=== PATIENT | male | born 1975 ===

== ENCOUNTER 2017-09-22 09:09 | Emergency (ER) | payer OTHER ==
[2017-09-22 09:19] VITALS: RESP 18
[2017-09-22] MEDS ORDERED: Sodium Chloride 0.9% 1,000 ML IV ONE (10:05)
[2017-09-22] MEDS ORDERED: Sodium Chloride 0.9% 1,000 ML ONE (10:11)
[2017-09-22 10:28] LABS: BASO # 0.1 K/uL (0.0-0.2); BASO % 0.8 % (0.0-2.0); EOS # 0.2 K/uL (0.0-0.7); EOS % 1.7 % (0.0-4.0); HEMOGLOBIN 14.7 g/dL (12.0-18.0); LYMPH # 2.4 K/uL (1.0-4.3); MEAN CELL VOLUME 83.9 fL (80.0-94.0); MEAN CORPUSCULAR HEMOGLOBIN 28.1 pg (27.0-31.0); MEAN CORPUSCULAR HGB CONC 33.5 g/dL (33.0-37.0); MEAN PLATELET VOLUME 9.6 fL (7.2-11.7); MONO % 7.9 % (0.0-10.0); NEUT % 70.6 % (50.0-75.0); RBC 5.24 Mil/uL (4.40-5.90); RED CELL DISTRIBUTION WIDTH 14.7 % (11.5-14.5); WHITE BLOOD COUNT 12.8 K/uL (4.8-10.8)
[2017-09-22 10:41] LABS: SQUAMOUS EPITHIAL 1 /hpf (0-5); URINE BACTERIA RARE (<OCC); URINE BILIRUBIN NEGATIVE (NEGATIVE); URINE BLOOD 1+ (NEGATIVE); URINE CLARITY Clear (Clear); URINE COLOR Straw (YELLOW); URINE GLUCOSE (UA) NORMAL (Normal); URINE LEUKOCYTE ESTERASE TRACE Leu/uL (Negative); URINE PROTEIN NEGATIVE (NEGATIVE); URINE UROBILINOGEN NORMAL mg/dL (0.2-1.0)
[2017-09-22 11:09] LABS: ALB/GLOB RATIO 0.8 (1.0-2.1); ALT/SGPT 34 U/L (21-72); AST/SGOT 30 U/L (17-59); BLOOD UREA NITROGEN 18 mg/dL (9-20); CALCIUM 9.2 mg/dl (8.6-10.4); GFR AFRICAN-AMERICAN > 60; GFR NON-AFRICAN AMERICAN > 60; LIPASE 70 U/L (23-300)
--- NOTE | 2017-09-22 11:59 | CT ---
PROCEDURE: CT Abdomen and Pelvis without intravenous contrast HISTORY: Abdominal pain COMPARISON: None. TECHNIQUE: Multiple contiguous axial images were performed through the abdomen and pelvis without the use intravenous contrast. Subsequently, sagittal and coronal reformatted images were obtained. Radiation dose: Total exam DLP = 1295 mGy-cm. This CT exam was performed using one or more of the following dose reduction techniques: Automated exposure control, adjustment of the mA and/or kV according to patient size, and/or use of iterative reconstruction technique. FINDINGS: LOWER THORAX: Unremarkable. LIVER: Mild fatty infiltration of the liver. GALLBLADDER AND BILE DUCTS: Unremarkable. PANCREAS: Unremarkable. No gross lesion or ductal dilatation. SPLEEN: Unremarkable. ADRENALS: Unremarkable. No mass. KIDNEYS AND URETERS: Without contrast, evaluation for renal lesions is markedly limited. Mild to moderate left hydroureteronephrosis with a a 4.4 millimeter obstructive calculus noted within the proximal to mid left ureter. Additional 4 millimeter calculus in the upper to midpole of the left kidney. 1.1 centimeter low-attenuation lesion in the upper pole of the left kidney, too small to adequately characterize. VASCULATURE: Unremarkable. No aortic aneurysm. BOWEL: Unremarkable. No obstruction. No gross mural thickening. APPENDIX: Unremarkable. Normal appendix. PERITONEUM: Unremarkable. No free fluid. No free air. LYMPH NODES: Unremarkable. No enlarged lymph nodes. BLADDER: Unremarkable. REPRODUCTIVE: Heterogeneous prostate with calcifications. BONES: No acute fracture. OTHER FINDINGS: Fat containing ventral abdominal wall hernia measuring 6.1 x 4.6 centimeters, just superior to the umbilicus. IMPRESSION: Study limited secondary to prominent attenuation artifact from large patient body habitus. Mild to moderate left hydroureteronephrosis with a 4.4 millimeter obstructive calculus noted within the proximal to mid left ureter. Additional 4 millimeter calculus in the upper to midpole of the left kidney. 1.1 centimeter low-attenuation lesion in the upper pole of the left kidney, too small to adequately characterize. Mild fatty infiltration of the liver. Fat containing ventral abdominal wall hernia measuring 6.1 x 4.6 centimeters, just superior to the umbilicus. Additional findings as above.
--- NOTE | 2017-09-22 12:28 | C.PDOC ---
History Of Present Illness 42 y/o male presents to the ER complaining of intermittent left flank pain which has been present for the past 1 week.Patient states that the pain radiates to the abdomen. Patient denies having associated nausea, vomiting, diarrhea, urinary symptoms, fever, and chills. Time Seen by Provider: 09/22/17 09:44 Chief Complaint (Nursing): Male Genitourinary History Per: Patient History/Exam Limitations: no limitations Onset/Duration Of Symptoms: Days Current Symptoms Are (Timing): Still Present Severity: Moderate Associated Symptoms: denies: Fever, Chills, Nausea, Vomiting, Diarrhea, Urinary Symptoms Past Medical History Reviewed: Historical Data, Nursing Documentation, Vital Signs Vital Signs: Last Vital Signs Temp 98.8 F 09/22/17 09:16 Pulse 96 H 09/22/17 09:16 Resp 18 09/22/17 09:16 BP 158/97 H 09/22/17 09:16 Pulse Ox 97 09/22/17 13:00 - Medical History PMH: No Chronic Diseases Surgical History: No Surg Hx Family History: States: No Known Family Hx - Social History Hx Alcohol Use: No Hx Substance Use: No - Immunization History Hx Tetanus Toxoid Vaccination: No Hx Influenza Vaccination: No Hx Pneumococcal Vaccination: No Review Of Systems Except As Marked, All Systems Reviewed And Found Negative. Constitutional: Negative for: Fever, Chills Gastrointestinal: Positive for: Abdominal Pain. Negative for: Nausea, Vomiting , Diarrhea Genitourinary: Negative for: Dysuria, Hematuria Musculoskeletal: Positive for: Other (flank pain) Physical Exam - Physical Exam Appears: Non-toxic, No Acute Distress Skin: Normal Color, Warm, Dry Head: Atraumatic, Normacephalic Eye(s): bilateral: Normal Inspection Nose: Normal Oral Mucosa: Moist Neck: Supple Chest: Symmetrical Cardiovascular: Rhythm Regular Respiratory: Normal Breath Sounds, No Rales, No Rhonchi, No Wheezing Gastrointestinal/Abdominal: Soft, Tenderness (LLQ tenderness), No Guarding, No Rebound Back: CVA Tenderness (left-sided CVA tenderness) Neurological/Psych: Oriented x3, Normal Speech ED Course And Treatment - Laboratory Results Result Diagrams: 09/22/17 10:24 09/22/17 10:24 O2 Sat by Pulse Oximetry: 97 (RA) Pulse Ox Interpretation: Normal - CT Scan/US CT - Abd & Pelv. Other Rad Studies (CT/US): Read By Radiologist, Radiology Report Reviewed CT/US Interpretation: PROCEDURE: CT Abdomen and Pelvis without intravenous contrast. HISTORY: Abdominal pain. COMPARISON: None. TECHNIQUE: Multiple contiguous axial images were performed through the abdomen and pelvis without the use intravenous contrast. Subsequently, sagittal and coronal reformatted images were obtained. Radiation dose: Total exam DLP = 1295 mGy-cm. This CT exam was performed using one or more of the following dose reduction techniques : Automated exposure control, adjustment of the mA and/or kV according to patient size, and/or use of iterative reconstruction technique. FINDINGS: LOWER THORAX: Unremarkable. LIVER: Mild fatty infiltration of the liver. GALLBLADDER AND BILE DUCTS: Unremarkable. PANCREAS: Unremarkable. No gross lesion or ductal dilatation. SPLEEN: Unremarkable. ADRENALS: Unremarkable. No mass. KIDNEYS AND URETERS: Without contrast, evaluation for renal lesions is markedly limited. Mild to moderate left hydroureteronephrosis with a a 4.4 millimeter obstructive calculus noted within the proximal to mid left ureter. Additional 4 millimeter calculus in the upper to midpole of the left kidney. 1.1 centimeter low-attenuation lesion in the upper pole of the left kidney, too small to adequately characterize. VASCULATURE: Unremarkable. No aortic aneurysm. BOWEL: Unremarkable. No obstruction. No gross mural thickening. APPENDIX: Unremarkable. Normal appendix. PERITONEUM: Unremarkable. No free fluid. No free air. LYMPH NODES: Unremarkable. No enlarged lymph nodes. BLADDER: Unremarkable. REPRODUCTIVE: Heterogeneous prostate with calcifications. BONES: No acute fracture. OTHER FINDINGS: Fat containing ventral abdominal wall hernia measuring 6.1 x 4.6 centimeters, just superior to the umbilicus. IMPRESSION: Study limited secondary to prominent attenuation artifact from large patient body habitus. Mild to moderate left hydroureteronephrosis with a 4.4 millimeter obstructive calculus noted within the proximal to mid left ureter. Additional 4 millimeter calculus in the upper to midpole of the left kidney. 1.1 centimeter low-attenuation lesion in the upper pole of the left kidney, too small to adequately characterize. Mild fatty infiltration of the liver. Fat containing ventral abdominal wall hernia measuring 6.1 x 4.6 centimeters, just superior to the umbilicus. Additional findings as above. Medical Decision Making Medical Decision Making: Assessment: Flank Pain Plan: --Labs --UA --CT - Abd & Pelv. -- IV Fluids --Toradol IV Updates: On re-evaluation, patient states that he feels better and the symptoms have resolved. Dr. Landin evaluated patient upon discharge. Patient has been diagnosed with kidney stones. Patient has been discharged and instructed to follow up with Dr. Landin in 2 days. Disposition Counseled Patient/Family Regarding: Studies Performed, Diagnosis, Need For Followup, Rx Given - Disposition Referrals: Arlet Landin MD [Staff Provider] - Disposition: HOME/ ROUTINE Disposition Time: 12:26 Condition: STABLE Additional Instructions: follow up with Dr. Landin within 2 days call to make an appointment take medications as needed for pain return to ER if symptoms worsens or progress Prescriptions: Acetaminophen/Codeine [Tylenol/Codeine 300 MG/30 MG] 1 tab PO Q6H PRN #12 tab PRN Reason: Pain, Severe (8-10) Naproxen [Naprosyn] 500 mg PO BID PRN #16 tab PRN Reason: Pain, Moderate (4-7) Ondansetron ODT [Zofran ODT] 4 mg PO TID PRN #12 odt PRN Reason: Nausea/Vomiting Tamsulosin [Flomax] 0.4 mg PO DAILY #10 cap Instructions: Renal Colic (DC) Forms: [facility] ([place]rainian), General Discharge Instructions - Clinical Impression Clinical Impression: Kidney stone on left side - Scribe Statement The provider has reviewed the documentation as recorded by the Alex Smith Provider Attestation: All medical record entries made by the Silibe were at my direction and personally dictated by me. I have reviewed the chart and agree that the record accurately reflects my personal performance of the history, physical exam, medical decision making, and the department course for this patient. I have also personally directed, reviewed, and agree with the discharge instructions and disposition.
[2017-09-22 13:43] VITALS: BP 136/74; PULSE 78; TEMP 98; O2SAT 98
--- NOTE | 2017-09-23 11:47 | RAD ---
HISTORY: stone COMPARISON: Noncontrast abdomen pelvis CT examination 09/22/2017. FINDINGS: BOWEL: There is a nonobstructive bowel gas pattern. Limited urolithiasis identified at the upper pole left kidney in prior CT exam noted above is not visible in the current radiograph series. This may be a function of obese body habitus. No large free intrarenal gas is appreciable. A faint density at the inferior left hemipelvis soft tissues probably reflects phleboliths identified in CT but is nonspecific ultimately. BONES: Unremarkable OTHER FINDINGS: None. IMPRESSION: No definitive radiodense urolithiasis is demonstrated including at the left renal fossa. Nonobstructive bowel gas pattern.
== END 2017-09-22 13:43 | disposition home or self-care (01) ==
LOC: C.ER 09:09
DX: N20.0 Calculus of kidney (principal)
CPT/HCPCS: 74019; 74176; 80053; 81001; 83690; 85025; 87086; 96374; 99284; J1885; J7030

== ENCOUNTER 2017-11-06 19:13 | Emergency (ER) | payer OTHER ==
--- NOTE | 2017-11-06 20:17 | C.PDOC ---
History Of Present Illness 42 year old male presents to the ER with a complaint of left flank pain that radiates to the groin that began today. Patient has a Hx of kidney stones in September 2017 to the same side. Denies fever or chills. Chief Complaint (Nursing): Back Pain History Per: Patient History/Exam Limitations: no limitations Onset/Duration Of Symptoms: Hrs Current Symptoms Are (Timing): Still Present Quality Of Discomfort: Unable To Describe Previous Symptoms: Other (Hx of kidney stones) Associated Symptoms: None Exacerbating Factor(s): Nothing Recent travel outside of the [place]: No Past Medical History Reviewed: Historical Data, Nursing Documentation, Vital Signs Vital Signs: Last Vital Signs Temp 98.4 F 11/06/17 19:54 Pulse 86 11/06/17 19:54 Resp 20 11/06/17 19:54 BP 136/77 11/06/17 19:54 Pulse Ox 95 11/06/17 22:46 Family History: States: Unknown Family Hx - Social History Hx Alcohol Use: No Hx Substance Use: No - Immunization History Hx Tetanus Toxoid Vaccination: No Hx Influenza Vaccination: No Hx Pneumococcal Vaccination: No Review Of Systems Constitutional: Negative for: Fever, Chills Respiratory: Negative for: Cough Gastrointestinal: Negative for: Nausea, Vomiting Genitourinary: Negative for: Dysuria, Hematuria Musculoskeletal: Positive for: Back Pain (Left flank pain) Physical Exam - Physical Exam Appears: Non-toxic, Other (Mild distress) Skin: Normal Color, Warm, Dry Head: Atraumatic, Normacephalic Eye(s): bilateral: Normal Inspection Oral Mucosa: Moist Chest: Symmetrical, No Tenderness Cardiovascular: Rhythm Regular Respiratory: Normal Breath Sounds, No Rales, No Rhonchi, No Wheezing Gastrointestinal/Abdominal: Soft, No Tenderness Back: CVA Tenderness (Mild left) Extremity: Normal ROM (x4) Neurological/Psych: Oriented x3, Normal Speech, Normal Motor, Normal Sensation Gait: Steady ED Course And Treatment - Laboratory Results Result Diagrams: 11/06/17 20:23 11/06/17 20:23 O2 Sat by Pulse Oximetry: 95 (room air) Pulse Ox Interpretation: Normal Progress Note: CT abd/pel, blood work, and urinalysis ordered. Disposition Counseled Patient/Family Regarding: Diagnosis - Disposition Referrals: [facility] [Outside] Rene Robins MD [Staff Provider] - Disposition: HOME/ ROUTINE Disposition Time: 22:43 Condition: STABLE Prescriptions: Ciprofloxacin [Cipro] 1 tab PO BID #14 tab Tamsulosin [Flomax] 0.4 mg PO DAILY #7 cap traMADol/Acetaminophen [Ultracet 325 MG-37.5 MG] 1 tab PO Q6 #20 tab Instructions: Renal Colic (DC) Forms: [facility] (Australian) - POA Present On Arrival: None - Clinical Impression Clinical Impression: Renal colic on left side - Scribe Statement The provider has reviewed the documentation as recorded by the Scribjaden Hamilton All medical record entries made by the Scribe were at my direction and personally dictated by me. I have reviewed the chart and agree that the record accurately reflects my personal performance of the history, physical exam, medical decision making, and the department course for this patient. I have also personally directed, reviewed, and agree with the discharge instructions and disposition.
[2017-11-06 20:26] LABS: BASO # 0.1 K/uL (0.0-0.2); BASO % 0.6 % (0.0-2.0); EOS # 0.3 K/uL (0.0-0.7); EOS % 2.6 % (0.0-4.0); HEMOGLOBIN 14.9 g/dL (12.0-18.0); LYMPH # 2.8 K/uL (1.0-4.3); MEAN CELL VOLUME 83.4 fL (80.0-94.0); MEAN CORPUSCULAR HEMOGLOBIN 28.5 pg (27.0-31.0); MEAN CORPUSCULAR HGB CONC 34.1 g/dL (33.0-37.0); MEAN PLATELET VOLUME 8.9 fL (7.2-11.7); MONO # 0.9 K/uL (0.0-0.8); MONO % 8.8 % (0.0-10.0); NEUT # 6.3 K/uL (1.8-7.0); NRBC % 0.1 % (0.0-2.0); RBC 5.23 Mil/uL (4.40-5.90); RED CELL DISTRIBUTION WIDTH 14.6 % (11.5-14.5); WHITE BLOOD COUNT 10.4 K/uL (4.8-10.8)
[2017-11-06 20:32] LABS: SQUAMOUS EPITHIAL 1 /hpf (0-5); URINE BACTERIA RARE (<OCC); URINE BILIRUBIN NEGATIVE (NEGATIVE); URINE BLOOD 3+ (NEGATIVE); URINE CLARITY Clear (Clear); URINE COLOR Yellow (YELLOW); URINE GLUCOSE (UA) NORMAL (Normal); URINE LEUKOCYTE ESTERASE 1+ Leu/uL (Negative); URINE PROTEIN NEGATIVE (NEGATIVE); URINE URIC ACID CRYSTALS OCC /hpf (<OCC); URINE UROBILINOGEN NORMAL mg/dL (0.2-1.0)
[2017-11-06 20:52] LABS: ALBUMIN 4.3 g/dL (3.5-5.0); ALT/SGPT 36 U/L (21-72); AST/SGOT 24 U/L (17-59); BLOOD UREA NITROGEN 9 mg/dL (9-20); CALCIUM 9.1 mg/dl (8.6-10.4); GFR AFRICAN-AMERICAN > 60; GFR NON-AFRICAN AMERICAN > 60; LIPASE 74 U/L (23-300)
[2017-11-06 22:57] VITALS: BP 160/96; PULSE 91; RESP 18; TEMP 98.1; O2SAT 96
--- NOTE | 2017-11-07 09:32 | CT ---
Date of service: 11/06/2017 PROCEDURE: CT Abdomen and Pelvis without intravenous contrast HISTORY: left flank pAIN COMPARISON: 09/22/2017 TECHNIQUE: Without contrast.. Contrast dose: 0 Radiation dose: Total exam DLP = 1345.87 mGy-cm. This CT exam was performed using one or more of the following dose reduction techniques: Automated exposure control, adjustment of the mA and/or kV according to patient size, and/or use of iterative reconstruction technique. FINDINGS: LOWER THORAX: Unremarkable. LIVER: The liver is enlarged. It measures 21.8 cm craniocaudal. Smooth in contour. There is no mass or biliary ductal dilatation appreciated. GALLBLADDER AND BILE DUCTS: Unremarkable. PANCREAS: Unremarkable. No gross lesion or ductal dilatation. SPLEEN: Unremarkable. ADRENALS: Unremarkable. No mass. KIDNEYS AND URETERS: There is a nonobstructing 7 mm mid left renal calculus. There is a 7 mm mid left ureteral calculus. There is no significant hydroureter or hydronephrosis. There is no right renal calculus. There is no renal mass. VASCULATURE: Unremarkable. No aortic aneurysm. BOWEL: Unremarkable. No obstruction. No gross mural thickening. APPENDIX: Unremarkable. Normal appendix. PERITONEUM: No pneumoperitoneum or ascites. Small umbilical hernia containing only mesenteric fat. LYMPH NODES: Unremarkable. No enlarged lymph nodes. BLADDER: Unremarkable. REPRODUCTIVE: Unremarkable prostate BONES: No acute fracture. OTHER FINDINGS: None. IMPRESSION: Mid left ureteral 7 mm calculus. Nonobstructing 7 mm mid left renal calculus. No hydronephrosis/ hydroureter. Mild hepatomegaly. Small umbilical hernia containing only mesenteric fat. No additional abnormality. The preliminary findings for this examination were reported by [facility] at 10:34 p.m. on 11/06/2017. There is concurrence of this report with the preliminary findings.
== END 2017-11-06 23:05 | disposition home or self-care (01) ==
LOC: C.ER 19:13
DX: N20.0 Calculus of kidney (principal); Z87.442 Personal history of urinary calculi